=== PATIENT | male | born 1985 | race Caucasian/White ===

== ENCOUNTER 2017-05-05 14:59 | Emergency (ER) | payer OTHER ==
--- NOTE | 2017-05-05 15:29 | EDPHY ---
H & P Stated Complaint: right arm numbness/tenderness, started new job typing a lot Time Seen by Provider: 05/05/17 15:18 HPI/ROS: CHIEF COMPLAINT: Right arm pain HISTORY OF PRESENT ILLNESS: The patient presents to the ED with complaints of right forearm and wrist pain. The patient reports he has noticed increasing pain since starting new job requiring him to perform wants of typing. The patient denies any fever, direct fall or trauma. The patient denies any history of IV drug use. The patient denies any acute numbness or weakness. The patient denies significant past medical history. The patient has no additional complaints. REVIEW OF SYSTEMS: A comprehensive 10 point review of systems is otherwise negative aside from elements mentioned in the history of present illness. Source: Patient Exam Limitations: No limitations - Personal History Current Tetanus/Diphtheria Vaccine: No Current Tetanus Diphtheria and Acellular Pertussis (TDAP): No - Medical/Surgical History Hx Asthma: No Hx Chronic Respiratory Disease: No Hx Diabetes: No Hx Cardiac Disease: No Hx Renal Disease: No Hx Cirrhosis: No Hx Alcoholism: No Hx HIV/AIDS: No Hx Splenectomy or Spleen Trauma: No Other PMH: ear infections - Social History Smoking Status: Current some day smoker - Physical Exam Exam: General Appearance: Alert, no distress Cardiovascular: Regular rate and rhythm Gastrointestinal: Abdomen is soft and nontender, no masses, bowel sounds normal Neurological: 5/5 strength noted throughout the right upper extremity, sensation intact to light touch in the radial, median and ulnar nerve distribution. Skin: Warm and dry, no rashes Musculoskeletal: Neck is supple nontender, 2+ radial and ulnar pulse Extremities: symmetrical, full range of motion Constitutional: Initial Vital Signs Temperature (C) 37 C 05/05/17 15:02 Heart Rate 97 05/05/17 15:02 Respiratory Rate 20 05/05/17 15:02 Blood Pressure 156/89 H 05/05/17 15:02 O2 Sat (%) 98 05/05/17 15:02 O2 Delivery Mode Room Air Allergies/Adverse Reactions: No Known Allergies Allergy (Unverified 05/05/17 15:02) Home Medications: Medication Instructions Recorded NK [No Known Home Meds] 05/05/17 Medical Decision Making ED Course/Re-evaluation: The patient presents to the ED with some tendinitis involving the right forearm. There is no clinical evidence of a cellulitis, septic arthritis or abscess. The patient is neurologically intact. The patient will be advised to take nonsteroidal anti-inflammatory medications. He is referred to our on-call orthopedic surgeon for any ongoing symptoms. He is advised to return to the emergency department for fever, worsening pain, swelling or numbness. Differential Diagnosis: Differential diagnosis considered includes cellulitis, abscess, tendinitis, carpal tunnel syndrome Departure - Departure Disposition: Home, Routine, Self-Care Clinical Impression: Strain of forearm, right Condition: Good Instructions: Musculoskeletal Pain (ED) Additional Instructions: 1. Please take ibuprofen as directed for next 7 days. 2. Please follow up with the orthopedic surgeon you have been referred to for any ongoing symptoms. 3. Return to the ED for redness, pain, swelling, worsening symptoms or other concerns. Referrals: Farzad Philip MD [Medical Doctor] - As per Instructions
[2017-05-05 15:41] VITALS: BP 128/74; PULSE 80; RESP 18; TEMP 98.6; O2SAT 97
== END 2017-05-05 15:40 | disposition home or self-care (01) ==
DX: S56.911A Strain of unspecified muscles, fascia and tendons at forearm level, right arm, initial encounter (principal); F17.200 Nicotine dependence, unspecified, uncomplicated; X58.XXXA Exposure to other specified factors, initial encounter

== ENCOUNTER 2017-05-11 15:02 | Emergency (ER) | payer OTHER ==
[2017-05-11 15:12] VITALS: RESP 16; TEMP 98.8
--- NOTE | 2017-05-11 15:34 | CPEKG ---
Heart Rate: 93 RR Interval: 645 P-R Interval: 144 QRSD Interval: 98 QT Interval: 384 QTC Interval: 478 P [place]: 60 QRS [place]: 51 T Wave [place]: 45 EKG Severity - BORDERLINE ECG - EKG Impression: SINUS RHYTHM EKG Impression: BORDERLINE PROLONGED QT INTERVAL Electronically Signed By: Sammy Henning 11-May-2017 21:33:54
--- NOTE | 2017-05-11 15:48 | EDPHY ---
H & P Stated Complaint: palpitations Time Seen by Provider: 05/11/17 15:47 - Personal History Current Tetanus/Diphtheria Vaccine: No Current Tetanus Diphtheria and Acellular Pertussis (TDAP): No - Medical/Surgical History Hx Asthma: No Hx Chronic Respiratory Disease: No Hx Diabetes: No Hx Cardiac Disease: No Hx Renal Disease: No Hx Cirrhosis: No Hx Alcoholism: No Hx HIV/AIDS: No Hx Splenectomy or Spleen Trauma: No Other PMH: ear infections, - Social History Smoking Status: Current some day smoker Constitutional: Initial Vital Signs Temperature (C) 37.1 C 05/11/17 15:10 Heart Rate 89 05/11/17 15:10 Respiratory Rate 16 05/11/17 15:10 Blood Pressure 136/90 H 05/11/17 15:10 O2 Sat (%) 99 05/11/17 15:10 O2 Delivery Mode Room Air Allergies/Adverse Reactions: No Known Allergies Allergy (Unverified 05/11/17 15:10) Home Medications: Medication Instructions Recorded Ibuprofen [Motrin (*)] 600 mg PO QID PRN #30 tab 05/05/17 Medical Decision Making ED Course/Re-evaluation: CHIEF COMPLAINT: Palpitations HISTORY OF PRESENT ILLNESS: This patient is a 31 y/o male complaining of palpitations related to alcohol withdrawal. He states "I've been a regular drinker my entire life". His father two years ago and he has been drinking daily as a coping mechanism. Last year, he had several month long periods of sobriety. On [employer] Day, two days ago, he drank heavily. Today, he is feeling palpitations and is concerned regarding withdrawal symptoms. He is interested in general alcohol recovery. No fever, chest pain, shortness of breath, vomiting, weakness, syncope , seizures, or other associated symptoms. Denies illicit drug use. REVIEW OF SYSTEMS: A 10 point review of systems was performed and is negative with the exception of the elements mentioned in the history of present illness. PHYSICAL EXAM: HR, BP, O2 Sat, RR. Temp noted General Appearance: Alert, well hydrated, appropriate, and non-toxic appearing. Head: Atraumatic without scalp tenderness or obvious injury Eyes: Pupils equal, round, reactive to light and accommodation, EOMI, no trauma , no injection. Ears: Clear bilaterally, no perforation, normal landmarks Nose: Atraumatic, no rhinorrhea, clear. Throat: There is no erythema or exudates, no lesions, normal tonsils, mucus membranes moist. Neck: Supple, 2+ carotid upstroke, nontender, no lymphadenopathy. Respiratory: No retractions, no distress, no wheezes, and no accessory muscle use. Lungs are clear to auscultation bilaterally. Cardiovascular: Regular rate and rhythm, no murmurs, rubs, or gallops. Bilateral carotid, radial, dorsalis pedis, and posterior tibial pulses intact. Good capillary refill all extremities. Gastrointestinal: Abdomen is soft, nontender, non-distended, no masses, no rebound, no guarding, no peritoneal signs. Musculoskeletal: Normal active ROM of all extremities, atraumatic. Neurological: Alert, appropriate, and interactive. The patient has normal DTRs and non-focal cranial nerves, motor, sensory, and cerebellar exam. Skin: No rashes, good turgor, no nodules on palpation. Past medical history: Ear infections. Past surgical history: Noncontributory. Family history: Noncontributory. Social history: Heavy alcohol use. Lives in [place]. Employed. DIAGNOSTICS/PROCEDURES/CRITICAL CARE TIME: The 12 lead EKG was interpreted by myself. See hard copy and/or "tracemaster" electronic copy for interpretation. Sinus rhythm. DIFFERENTIAL DIAGNOSIS: The differential diagnosis for the patient's palpitations included but was not limited to various causes of sinus tachycardia such as dehydration and medicines , SVT, atrial flutter, atrial fibrillation, pulmonary causes. MEDICAL DECISION MAKING: This 31 y/o male presents with alcohol withdrawal. Exam unremarkable. EKG shows sinus rhythm. Discussed alcohol recovery options in detail with the patient. Recommended he present to the [facility] for assistance in alcohol recovery. Patient agrees to receive more information about programs offered by the [facility]. Departure - Departure Disposition: Home, Routine, Self-Care Clinical Impression: Alcohol abuse Condition: Good Instructions: Alcohol Dependence (ED), Alcohol Use Disorder (ED) Additional Instructions: Please refrain from abusing alcohol. Follow up at the [facility] for assistance with alcohol recovery as we discussed. Return to the emergency department for fever, vomiting, confusion, headache, abdominal pain or other worsening of condition. Referrals: [facility] 24 Hours [Outside] - As per Instructions Report Scribed for: Sammy Henning Report Scribed by: Arabella Benavidez Date of Report: 05/11/17 Time of Report: 16:11
[2017-05-11 16:40] VITALS: BP 140/89; PULSE 70; O2SAT 96
== END 2017-05-11 16:48 | disposition home or self-care (01) ==
DX: F10.10 Alcohol abuse, uncomplicated (principal); F17.200 Nicotine dependence, unspecified, uncomplicated

== ENCOUNTER 2017-11-23 13:50 | Emergency (ER) | payer OTHER ==
[2017-11-23] MEDS ORDERED: NS 1,000 ML IV ONE (14:18)
[2017-11-23] MEDS ORDERED: ONDANSETRON 4 MG/2 ML VIAL IVP ONE (14:18)
--- NOTE | 2017-11-23 14:18 | EDPHY ---
H & P Stated Complaint: LUQ abd pain intermittant x 1 month, heavy etoh consumer Time Seen by Provider: 11/23/17 14:00 HPI/ROS: CHIEF COMPLAINT: Intermittent abdominal pain associated with heavy binge alcohol use HISTORY OF PRESENT ILLNESS: The patient presents to the ED with complaints of intermittent left upper quadrant and epigastric pain for the past month associated with heavy binge alcohol use. The patient reports vomiting but denies hematemesis or melena. The patient takes no regular medications. The patient does report that he occasionally uses cocaine. He denies chest pain or shortness of breath. He reports his pain is moderate in nature and worsened with palpation and foods. The patient is interested in sobriety. REVIEW OF SYSTEMS: A comprehensive 10 point review of systems is otherwise negative aside from elements mentioned in the history of present illness. Source: Patient Exam Limitations: No limitations - Personal History Current Tetanus Diphtheria and Acellular Pertussis (TDAP): Unsure - Medical/Surgical History Hx Asthma: No Hx Chronic Respiratory Disease: No Hx Diabetes: No Hx Cardiac Disease: No Hx Renal Disease: No Hx Cirrhosis: No Hx Alcoholism: Yes Hx HIV/AIDS: No Hx Splenectomy or Spleen Trauma: No Other PMH: ear infections, ETOH abuse, cocaine drug user - Social History Smoking Status: Current some day smoker - Physical Exam Exam: General Appearance: Alert, no distress Eyes: Pupils equal and round no pallor or injection ENT, Mouth: Mucous membranes moist Respiratory: There are no retractions, lungs are clear to auscultation Cardiovascular: Regular rate and rhythm Gastrointestinal: Tenderness to palpation noted in the mid abdominal area, no peritoneal signs, normal bowel sounds Neurological: A&O, normal motor function, normal sensory exam, normal cranial nerves Skin: Warm and dry, no rashes Musculoskeletal: Neck is supple nontender Extremities: symmetrical, full range of motion Psychiatric: Patient is oriented X 3, there is no agitation Constitutional: Initial Vital Signs Temperature (C) 37.1 C 11/23/17 13:52 Heart Rate 117 H 11/23/17 13:52 Respiratory Rate 18 11/23/17 13:52 Blood Pressure 141/90 H 11/23/17 13:52 O2 Sat (%) 97 11/23/17 13:52 O2 Delivery Mode Room Air Allergies/Adverse Reactions: No Known Allergies Allergy (Unverified 05/11/17 15:10) Home Medications: Medication Instructions Recorded Ondansetron Odt [Zofran Odt] 4 mg PO Q4PRN PRN #20 tab 11/23/17 Medical Decision Making ED Course/Re-evaluation: The patient had an IV established. He received a L of normal saline. He received IV Zofran. The patient's laboratory studies are unremarkable. He has no evidence of pancreatitis. The patient was given a GI cocktail. He is interested in outpatient resources for his chronic alcohol dependence and has been given the contact [facility] for [facility]. Differential Diagnosis: Differential diagnosis considered includes pancreatitis, peptic ulcer disease, dehydration, renal failure, alcohol withdrawal - Data Points Laboratory Results: Laboratory Results 11/23/17 14:10 11/23/17 14:10 11/23/17 11/23/17 14:10 14:10 WBC 6.29 10^3/uL 10^3/uL (3.80-9.50) RBC 5.42 10^6/uL 10^6/uL (4.40-6.38) Hgb 17.5 g/dL g/dL (13.7-17.5) Hct 48.5 % % (40.0-51.0) MCV 89.5 fL fL (81.5-99.8) MCH 32.3 pg pg (27.9-34.1) MCHC 36.1 g/dL g/dL (32.4-36.7) RDW 12.8 % % (11.5-15.2) Plt Count 272 10^3/uL 10^3/uL (150-400) MPV 9.5 fL fL (8.7-11.7) Neut % (Auto) 82.2 % H % (39.3-74.2) Lymph % (Auto) 12.9 % L % (15.0-45.0) [place] % (Auto) 4.0 % L % (4.5-13.0) Eos % (Auto) 0.0 % L % (0.6-7.6) Baso % (Auto) 0.6 % % (0.3-1.7) Nucleat RBC Rel Count 0.0 % % (0.0-0.2) Absolute Neuts (auto) 5.17 10^3/uL 10^3/uL (1.70-6.50) Absolute Lymphs (auto) 0.81 10^3/uL L 10^3/uL (1.00-3.00) Absolute Monos (auto) 0.25 10^3/uL L 10^3/uL (0.30-0.80) Absolute Eos (auto) 0.00 10^3/uL L 10^3/uL (0.03-0.40) Absolute Basos (auto) 0.04 10^3/uL 10^3/uL (0.02-0.10) Absolute Nucleated RBC 0.00 10^3/uL 10^3/uL (0-0.01) Immature Gran % 0.3 % % (0.0-1.1) Immature Gran # 0.02 10^3/uL 10^3/uL (0.00-0.10) Sodium 142 mEq/L mEq/L (135-145) Potassium 4.2 mEq/L mEq/L (3.3-5.0) Chloride 100 mEq/L mEq/L (97-110) Carbon Dioxide 22 mEq/l mEq/l (22-31) Anion Gap 20 mEq/L H mEq/L (8-16) BUN 6 mg/dL L mg/dL (7-23) Creatinine 0.9 mg/dL mg/dL (0.7-1.3) Estimated GFR > 60 Glucose 102 mg/dL H mg/dL (70-100) Calcium 10.6 mg/dL H mg/dL (8.5-10.4) Lipase 100 IU/L IU/L (23-300) Medications Given: Discontinued Medications Sodium Chloride (Ns) 1,000 mls @ 0 mls/hr IV EDNOW ONE; Wide Open PRN Reason: Protocol Stop: 11/23/17 14:19 Last Admin: 11/23/17 14:24 Dose: 1,000 mls Ondansetron HCl (Zofran) 4 mg IVP EDNOW ONE Stop: 11/23/17 14:19 Last Admin: 11/23/17 14:25 Dose: 4 mg Departure - Departure Disposition: Home, Routine, Self-Care Clinical Impression: Alcohol dependence, Abdominal pain Condition: Good Instructions: Acute Abdominal Pain (ED) Additional Instructions: 1. [facility] offers assistance with alcohol dependence and treatment for alcohol withdrawal. You have been given the contact information. 2. Zofran as needed for nausea 3. I do recommend beginning Zantac 150 mg twice a day. Referrals: [facility] 24 Hours [Outside] - As per Instructions
[2017-11-23 14:25] LABS: PLATELET COUNT 272 10^3/uL (150-400)
[2017-11-23] MEDS ORDERED: MAG HYDROX/AL HYDROX/SIMETH 30 ML UDCUP PO ONE (14:49)
[2017-11-23] MEDS ORDERED: LIDOCAINE 2% VISCOUS 15 ML UDCUP PO ONE (14:49)
[2017-11-23] MEDS ORDERED: HYOSCYAMINE SULFATE 0.125 MG TAB PO ONE (14:49)
[2017-11-23 14:59] VITALS: BP 104/66
== END 2017-11-23 15:13 | disposition home or self-care (01) ==
DX: R10.12 Left upper quadrant pain (principal); F10.20 Alcohol dependence, uncomplicated; E86.9 Volume depletion, unspecified; F17.200 Nicotine dependence, unspecified, uncomplicated
CPT/HCPCS: 96374; J2405